=== PATIENT | female | born 2005 | race Caucasian/White ===

== ENCOUNTER 2025-10-20 01:05 | Emergency (ER) | payer OTHER, SELFPAY ==
--- OUTSIDE RECORDS SUMMARY | 2016-05-13 05:45 | XMS_ITS | Continuity of Care Document ---
Author Organization [facility] Address [address] [place] [address] Phone Care Team Providers Care Gray Mixing Operator Name Role Phone Miguel LUNAYakeline Unavailable Unavailable Medications Medication Instructions Dosage Effective Dates (start - stop) Status Comments Nix Creme Rinse 1 % Topical Liquid apply by topical route a sufficient amount of shampoo once allow to remain on hair for 10 minutes before rinsing off with water 0.00 - Active amoxicillin 400 mg/5 mL Oral Susp take 7.5 milliliter (600MG) by oral route every 12 hours 600 MG - Active Zyrtec 1 mg/mL Oral Soln 3/4 tsp po qd - Active qs 1 month Procedures Procedure Date PREV.VISIT/EST. 5-11 YRS HEP A VAC, PED/ADOL, DOSE 2 (1) 2 Dose S eries (SV) PREV.VISIT/EST. 5-11 YRS HEP A VAC, PED/ADOL, DOSE 1 (SV) (1) Oct Influenza/3YRS + (1) Immunization Admin 1st Vaccine 11 Immunization Admin Ea Addl Vaccine OFFICE VISIT/EST LEVEL III ACCUCHECK/GLUCOMETER No Show No Show PREV.VISIT/EST. 5-11 YRS URINE DIP HEARING SCREEN VISUAL ACUITY SCREEN DTAP VACCINE, < 7 YRS Dose 5 (SV) IPV Dose 4 (SV) MMR VACCINE Dose 2 (SV) VARIVAX Dose 2 (SV) CBC W/DIFF. OFFICE VISIT/EST LEVEL III OFFICE VISIT/EST LEVEL III OFFICE VISIT/EST LEVEL III OFFICE VISIT/EST LEVEL III OFFICE VISIT/EST LEVEL III OFFICE VISIT/EST LEVEL III URINE DIP URINE CULTURE ELECTROLYTES:NA,K,CL CO2 OFFICE VISIT/EST LEVEL III OFFICE VISIT/EST LEVEL III OFFICE VISIT/EST LEVEL III OFFICE VISIT/EST LEVEL III URINE DIP URINE CULTURE OFFICE VISIT/EST LEVEL III URINE CULTURE OFFICE VISIT/EST LEVEL III OFFICE VISIT/EST LEVEL III OFFICE VISIT/EST LEVEL III FLU VACCINE, 3 YRS & > (State) 08 Advance Directives Directive Yes / No Effective Date File Name No Information Encounters Encounter Description Practice Location Reason(s) For Visit Diagnoses Date Provider Providers Copied on Encounter [facility], [address], [id number], tel:[phone] [facility] No Information 6 Miguel PAC Ruth. [address] [place], [place], [id number], [place]. tel:[phone] [facility], [address], [id number], tel:[phone] [facility] No Information 9-201 3 Miguel PAC Ruth. [address] [place], [place], [id number], [place]. tel:[phone] PREV.VISIT/ES T. 5-11 YRS [facility], [address] [facility] [address], [place], [place], [id number], [place] tel:[phone] [facility] (chief complaint[facility] No Information 3 Miguel Miranda. [address] [place] [address], [id number], [place]. tel:[phone] PREV.VISIT/ES T. 5-11 YRS [facility], [address] [facility] [address], [place], [place], [id number], [place] tel:[phone] [facility] wcc (chief complaint) flu shot (chief complaint) No Information 1 José Garnett. [address] [place] [address], [id number], [place]. tel:[phone] OFFICE VISIT/EST LEVEL III [facility] [address], [id number], [place] tel:[phone] [facility] dizziness (chief complaint) behavior (chief complaint) No Information 1 No Information [facility], [address] [place] [address] 200, [place], [place], [id number], [place] tel:[phone] [facility] No Information 0 No Information [facility], [address] [place] [address], [place], [id number], [place] tel:[phone] [facility] No Information 0 No Information PREV.VISIT/ES T. 5-11 YRS [facility] [place], [address] [place] [address], [place], [id number], [place] tel:[phone] [facility] No Information Jan-3 0- 0 No Information [facility], [address] [place] [address], [place], [id number], [place] tel:[phone] [facility] No Information Mar-3 0- 0 No Information OFFICE VISIT/EST LEVEL III [facility] [address], [place], [place], [id number], [place] tel:[phone] 700 [facility] No Information 2-201 0 No Information OFFICE VISIT/EST LEVEL III [facility], [address], [place], [place], [id number], [place] tel:[phone] 700 [facility] No Information Aug-0 7-200 9 No Information OFFICE VISIT/EST LEVEL III [facility], [address], [place], [place], [id number], [place] tel:[phone] 700 [facility] No Information Jun- 4-200 9 No Information OFFICE VISIT/EST LEVEL III [facility], [address], [place], [place], [id number], [place] tel:[phone] 700 [facility] No Information May-2 0-200 9 No Information OFFICE VISIT/EST LEVEL III [facility], [address], [place], [place], [id number], [place] tel:[phone] 700 [facility] No Information May-0 9-200 9 No Information OFFICE VISIT/EST LEVEL III [facility], [address], [place], [place], [id number], [place] tel:[phone] 700 [facility] No Information March-0 8-200 9 No Information OFFICE VISIT/EST LEVEL III [facility], [address], [place], [place], [id number], [place] tel:[phone] [facility] No Information Feb-2 1-200 9 No Information OFFICE VISIT/EST LEVEL III [facility], [address], [place], [place], [id number], [place] tel:[phone] 700 [facility] No Information Jan-3 1-200 9 No Information OFFICE VISIT/EST LEVEL III [facility], [address], [place], [place], [id number], [place] tel:[phone] 700 [facility] No Information Jan-3 0-200 9 No Information OFFICE VISIT/EST LEVEL III [facility], [address], [place], [place], [id number], tel:[phone] [facility] No Information 0 2200 9 No Information OFFICE VISIT/EST LEVEL III [facility], [address] [facility] [address], [place], [place], [id number], tel:[phone] [facility] No Information 9 No Information OFFICE VISIT/EST LEVEL III [facility], [address] [facility] [address], [place], [place], [id number], tel:[phone] [facility] No Information 9 No Information OFFICE VISIT/EST LEVEL III [facility], [address] [facility] [address], [place], [place], [id number], tel:[phone] [facility] No Information 9 No Information OFFICE VISIT/EST LEVEL III [facility], [address] [facility] [address], [place], [place], [id number], tel:[phone] [facility] No Information 8 No Information Family History Family Member Type Diagnosis Age At Onset Aunt Problem (finding) migraine Mother Problem (finding) asthma Aunt Problem (finding) seizure disorder Mother Problem (finding) Allergies Maternal grandmother Problem (finding) Thyroid disease Mother Problem (finding) malignant neop lasm of cervix uteri Immunizations Vaccine Date Status Comments Hep A (ped/adol, 2 dose) administered Cherelle rce: New Immunization Record flu (split) preservative goran e, 6-35 mos administered Source: New Immuniza tion Record Hep A (ped/adol, 2 dose) administered Cherelle rce: New Immunization Record MMR administered Source: New Imm unization Record varicella administered Source: New Imm unization Record polio, inactivated (IPV) administered Cherelle rce: New Immunization Record DTaP administered Source: New Imm unization Record pneumo (under 5) (PCV7) administered Sour ce: New Immunization Record polio, inactivated (IPV) administered Cherelle rce: New Immunization Record HIB - unspecified administered Note: Set procedure code where blank for historical non-specific HIB entry. ; Source: New Immunization Record varicella administered Source: New Imm unization Record MMR administered Source: New Imm unization Record pneumo (under 5) (PCV7) administered Sour ce: New Immunization Record hep B (ped/adol, 3 dose) administered Cherelle rce: New Immunization Record HIB - unspecified administered Note: Set procedure code where blank for historical non-specific HIB entry. ; Source: New Immunization Record DTaP administered Source: New Imm unization Record pneumo (under 5) (PCV7) administered Sour ce: New Immunization Record polio, inactivated (IPV) administered Cherelle rce: New Immunization Record HIB - unspecified administered Note: Set procedure code where blank for historical non-specific HIB entry. ; Source: New Immunization Record DTaP administered Source: New Imm unization Record pneumo (under 5) (PCV7) administered Sour ce: New Immunization Record polio, inactivated (IPV) administered Cherelle rce: New Immunization Record hep B (ped/adol, 3 dose) administered Cherelle rce: New Immunization Record HIB - unspecified administered Note: Set procedure code where blank for historical non-specific HIB entry. ; Source: New Immunization Record DTaP administered Source: New Imm unization Record hep B (ped/adol, 3 dose) administered Cherelle rce: New Immunization Record DTaP administered Source: New Imm unization Record Payers Payer name Insurance type Covered constitution party ID Authoriza tion(s) No Information Social History Type Description Quantity Date Captured Comments Sex Female Smoking Status No Information Chief Complaint And Reason For Visit No Information Reason For Referral Reason For Referral No Information History Of Present Illness Encounter Date Complaint History Of Prese nt Illness No Information Functional Status Date Functional Assessmen t No Information Instructions Date Instruction Additional Infor mation form completed Related to Well child check Tommy-14-2013 form completed Related to Well child check Assessments Type Assessment Date No Information Patient Care Teams Name Effective Dates (start - stop) Status Members No Information
--- OUTSIDE RECORDS SUMMARY | 2025-09-20 10:45 | XMS_ITS | Encounter Summary ---
Author Organization [employer] ([place], [place], [place], [place], [place]) Address [address] [place] [address] Care Team Providers Care Patient Registration Supervisor Name Role Phone Amos Jarrett MD Primary Care Provider [phone] Encounter Details Date Type Department Care Team (Late st Contact Info) Description 09/20/2025 10:45 AM EST Office Visit [facility] Cardiology - [place] [address] [place] [address] Lucía Garcia PA-C [address] [address] Shortness of breath (Primary Dx); Palpitations Social History Tobacco Use Types Packs/Day Years Used Date Smoking Tobacco: Former Cigarettes Smokeless Tobacco: Never Tobacco Cessation:Counseling Given: Not Answered Alcohol Use Standard Drinks/Week Comments Never 0 (1 standard drink = 0.6 oz pur e alcohol) caffeine use Comments Unknown Sex and Gender Information Value Date Recorded Sex Assigned at Not on file Legal Sex Female 12:18 AM CDT Gender Identity Not on file Sexual Orientation Not on file documented as of this encounter Last Filed Vital Signs Vital Sign Reading Time Taken Comments Blood Pressure 106/68 09/20/2025 10:38 AM EST Pulse 74 09/20/2025 10:38 AM EST Temperature - - Respiratory Rate - - Oxygen Saturation 96% 09/20/2025 10:38 AM EST Inhaled Oxygen Concentration - - Weight 83 kg (183 lb) 09/20/2025 10:38 AM EST Height 177.8 cm (5' 10 ) 09/20/2025 10:38 AM EST Body Mass Index 26.26 09/20/2025 10:38 AM EST documented in this encounter Progress Notes * Lucía Garcia PA-C - 09/20/2025 10:45 AM EST CARDIOLOGY NEW PATIENT EVALUATION Date of Service: 09/20/2025 NAME: Tarah Knox : 2005 AGE: 20 y.o. PCP: Amos Jarrett MD Chief Complaint No chief complaint on file. History of Present Illness Pleasant 20-year-old white female who is seen in consultation from Amos Jarrett MD for evaluation of near syncope and palpitations. Patient had previously followed with Dr. Blum and diagnosed with PSVT. This was managed with beta-mary. When the patient lost her insurance she was no longer able to afford follow-up visits or medications. She is now 10 weeks . Palpitation symptoms have persisted. Today they have not escalated. She has also had episodes that her boyfriend reports ispossible seizure activity. She is scheduled to see neurology. She has had no enzo syncopal episodes. He states she blanks out and has twitching of her hands and fingers lasts for couple of minutesand resolved spontaneously. History of asthma Review of Systems ROS Current Medications Current Outpatient Medications Medication Sig Dispense Refill vitamin w/wskohjn-ewtk-glxhqn ( PLUS) 27 mg iron- 1 mg tab Take 1 tablet by mouth daily. No current facility-administered medications for this visit. Past Medical History Past Medical History: Diagnosis Date Asthma Dizziness Syncope Past Surgical History Past Surgical History: Procedure Laterality Date COLONOSCOPY ESOPHAGOGASTRODUODENOSCOPY Allergies Allergies Allergen Reactions Rocephin [Ceftriaxone] Social History Social History Socioeconomic History Marital status: Single Spouse name: Not on file Number of children: Not on file Years of education: Not on file Highest education level: Not on file Occupational History Not on file Tobacco Use Smoking status: Former Types: Cigarettes Smokeless tobacco: Never Substance and Sexual Activity Alcohol use: Never Comment: caffeine use Drug use: Never Sexual activity: Not on file Other Topics Concern Not on file Social History Narrative Not on file Social Drivers of Health Food Insecurity: Not on file Transportation: Not on file Family History Family History Problem Relation Name Age of Onset Seizures Other Cancer Other Physical Exam BP 106/68 (BP Location: Left arm, Patient Position: Sitting) Pulse 74 Ht 1.778 m (5' 10 ) Wt 83 kg (183 lb) SpO2 96% BMI 26.26 kg/m?? Physical Exam Constitutional: Appearance: Normal appearance. Patient is normal weight. HENT: Head: Normocephalic and atraumatic. Right Ear: External ear normal. Left Ear: External ear normal. Nose: Nose normal. Mouth/Throat: Pharynx: Oropharynx is clear. Eyes: Extraocular Movements: Extraocular movements intact. Conjunctiva/sclera: Conjunctivae normal. Pupils: Pupils are equal, round, and reactive to light. Cardiovascular: Rate and Rhythm: Normal rate and regular rhythm. Pulses: Normal pulses. Heart sounds: Normal heart sounds. Pulmonary: Effort: Pulmonary effort is normal. Breath sounds: Normal breath sounds. Abdominal: General: Abdomen is flat. Bowel sounds are normal. Palpations: Abdomen is soft. Musculoskeletal: General: Normal range of motion. Cervical back: Normal range of motion and neck supple. Skin: General: Skin is warm and dry. Capillary Refill: Capillary refill takes less than 2 seconds. Neurological: General: No focal deficit present. Mental Status: He is alert and oriented to person, place, and time. Mental status is at baseline. Psychiatric: Mood and Affect: Mood normal. Behavior: Behavior normal. Thought Content: Thought content normal. Judgment: Judgment normal. EKG: Normal Assessment -PSVT by history - +/- Seizure - Active Plan EKG is normal. Patient does not appear to be terribly symptomatic by palpitations currently. With hormonal changes, stress of , increased/changes in body size, the demands baby will put on mother as pregnancyu will likely cause a rise in heart rate and possibly increased palpitations. Willtry to avoid pharmacologic management during Emphasized lifestyle adjustments, decrease caffeine, daily exercise, decrease stress. Place 7-day ambulatory monitor Pursue neurology evaluation Follow-up in 3 months LITY MANAGER documented in this encounter Plan of Treatment Upcoming Encounters Date Type Department Care Team (Late st Contact Info) Description 12/22/2025 10:45 AM EST Office Visit [facility] Cardiology - [address] [address] Lucía Garcia PA-C [address] [facility] [address] documented as of this encounter Procedures Procedure Name Priority Date/Time Associated Diagnosis Comments FS_MODEL_IP_ECG 12-LEAD Routine 09/20/20 12:40 PM EST Shortness of breath documented in this encounter Results * ECG 12 lead (09/20/2025 12:40 PM EST) Lucía Garcia PA-C ECG ORDERABLES Final Result * Event monitor supply assistant and record (09/20/2025 11:23 AM EST) Anatomical Region Laterality Modality Other Narrative 10/09/2025 4:39 PM EST Holter Re: -PSVT by history - +/- Seizure - Active All sinus rhythm with sinus tachycardia No SVT No pauses No profound bradycardia No other findings PEDRO HOBSON Lucía Garcia PA-C CV CARDIAC SERVICES ORDERABLE S Final Result documented in this encounter Visit Diagnoses Diagnosis Shortness of breath- Primary Palpitations Palpitations documented in this encounter Care Teams Patient Registration Supervisor Relationship Specialty Start Date End Date Amos Jarrett MD [address] [place] [address] PCP - General Family Medicine 08/01/25 documented as of this encounter
--- OUTSIDE RECORDS SUMMARY | 2025-09-20 11:00 | XMS_ITS | Encounter Summary ---
Author Organization [employer] ([place], [place], [place], [place], [place]) Address [address] [place] [address] Care Team Providers Care Automotive Finance Manager Name Role Phone Amos Jarrett MD Primary Care Provider [phone]- [phone] Encounter Details Date Type Department Care Team (Late st Contact Info) Description 09/20/2025 11:00 AM EST Ancillary Procedure [address] [address] Lucía Garcia PA-C [address] [place] [address] Palpitations Social History Tobacco Use Types Packs/Day Years Used Date Smoking Tobacco: Former Cigarettes Smokeless Tobacco: Never Alcohol Use Standard Drinks/Week Comments Never 0 (1 standard drink = 0.6 oz pur e alcohol) caffeine use Comments Unknown Sex and Gender Information Value Date Recorded Sex Assigned at Not on file Legal Sex Female 12:18 AM CDT Gender Identity Not on file Sexual Orientation Not on file documented as of this encounter Plan of Treatment Upcoming Encounters Date Type Department Care Team (Late st Contact Info) Description 12/22/2025 10:45 AM EST Office Visit [address] [address] Lucía Garcia PA-C [address] [place] [address] documented as of this encounter Procedures Procedure Name Priority Date/Time Associated Diagnosis Comments EVENT MONITOR CRYSTAL SLICER AND RECORD Routine 09/20/2025 11:23 AM EST Palpitations documented in this encounter Results * Event monitor biomass power plant superintendent and record (09/20/2025 11:23 AM EST) Anatomical Region Laterality Modality Other Narrative 10/09/2025 4:39 PM EST Holter Re: -PSVT by history - +/- Seizure - Active All sinus rhythm with sinus tachycardia No SVT No pauses No profound bradycardia No other findings PEDRO HOBSON Lucía Garcia PA-C CV C[facility] SERVICES ORDERABLE S Final Result documented in this encounter Visit Diagnoses Diagnosis Palpitations documented in this encounter Care Teams Automotive Finance Manager Relationship Specialty Start Date End Date Amos Jarrett MD [address] [place] [address] [place] [address] PCP - General Family Medicine 08/01/25 documented as of this encounter
--- NOTE | 2025-10-20 01:07 | ECG_ITS ---
APPROVED REPORT Exam: Resting ECG HR:72 bpm ECG Measurements Heart Rate 72 AXES NJ 133 P 54 QRSd 78 QRS 42 QT 372 T 27 QTc 396 Conclusion SINUS RHYTHM NORMAL ECG Electronically signed by : HERNÁN GARCIA, 10/20/2025 06:41:06
[2025-10-20 01:09] VITALS: BP 131/73; PULSE 79; RESP 16; TEMP 36.6; O2SAT 99; BMI 27.1
[2025-10-20 01:12] VITALS: BP 123/76; PULSE 65; RESP 19; TEMP 36.5; O2SAT 99
[2025-10-20] MEDS: ASPIRIN 81MG CHEWABLE TABLET 324 MG PO (01:17)
[2025-10-20] MEDS: LACTATED RINGERS 1000ML 1,000 ML 999 ML IV (01:18)
[2025-10-20 01:25] LABS: Hematocrit 38.9 % (37.0-47.0); Hemoglobin 12.8 g/dL (12.2-16.2); Immature Granulocytes % 0.2 %; Mean Corpuscular HGB Conc 32.9 g/dL (31.8-35.4); Mean Corpuscular Hemoglobin 27.4 pg (27.0-31.2); Mean Corpuscular Volume 83.1 fl (81-99); Nucleated Red Blood Cells % 0 %; Platelet Count 308 K/mm3 (142-424); Red Blood Count 4.68 M/mm3 (4.20-5.40); Red Cell Distribution Width-SD 41.8 fL; White Blood Count 13.1 K/mm3 (4.5-13.0)
--- OUTSIDE RECORDS SUMMARY | 2025-10-20 01:30 | XMS_ITS | Referral Summary ---
Author Organization [employer] ([place], [place], [place], [place], [place]) Address [address] [place] [address] Care Team Providers Care Breaker Boss Name Role Phone Amos Jarrett MD Primary Care Provider [phone]- [phone] Encounters Date Type Department Care Team Description 09/20/2025 11:00 AM EST Ancillary Procedure [address] [address] Lucía Garcia PA-C Palpitations 09/20/2025 10:45 AM EST Office Visit [address] [address] Lucía Garcia PA-C Shortness of breath (Primary Dx); Palpitations from Last 3 Months Allergies Active Allergy Reactions Criticality Noted Date Comments Ceftriaxone 07/06/2025 Medications vitamin w/jjwtqua-rios-b olate ( PLUS) 27 mg iron- 1 mg tab Take 1 tablet by mouth daily. Active Active Problems Problem Noted Date Diagnosed Date Syncope Dizziness Asthma Social History Tobacco Use Types Packs/Day Years [...] on file Sexual Orientation Not on file Last Filed Vital Signs Vital Sign Reading Time Taken Comments Blood Pressure 106/68 09/20/2025 10:38 AM EST Pulse 74 09/20/2025 10:38 AM EST Temperature 36.4 C (97.6 F) 07/06/2025 4:12 AM EDT Respiratory Rate 17 07/06/2025 4:12 AM EDT Oxygen Saturation 96% 09/20/2025 10:38 AM EST Inhaled Oxygen Concentration - - Weight 83 kg (183 lb) 09/20/2025 10:38 AM EST Height 177.8 cm (5' 10 ) 09/20/2025 10:38 AM EST Body Mass Index 26.26 09/20/2025 10:38 AM EST Plan of Treatment Upcoming Encounters Date Type Department Care Team (Late st Contact Info) Description 12/22/2025 10:45 AM EST Office Visit [facility] Cardiology - [place] [address] [address] Lucía Garcia PA-C 227 [facility] [address] [place] [address] Procedures Procedure Name Priority Date/Time Associated Diagnosis Comments FS_MODEL_IP_ECG 12-LEAD Routine 09/20/2025 12:40 PM EST Shortness of breath EVENT MONITOR BESSEMER REGULATOR AND RECORD Routine 09/20/2025 11:23 AM EST Palpitations from Last 3 Months Results * ECG 12 lead (09/20/2025 12:40 PM EST) Lucía Garcia PA-C ECG ORDERABLES Final Result * Event monitor milling machine set up operator and record (09/20/2025 11:23 AM EST) Anatomical Region Laterality Modality Other Narrative 10/09/2025 4:39 PM EST Holter Re: -PSVT by history - +/- Seizure - Active All sinus rhythm with sinus tachycardia No SVT No pauses No profound bradycardia No other findings PEDRO HOBSON Lucía Garcia PA-C CV CARDIAC SERVICES ORDERABLE S Final Result from Last 3 Months Insurance [facility] [place] Care Teams Breaker Boss Relationship Specialty Start Date End Date Amos Jarrett MD [address] [place] [address] PCP - General Family Medicine 08/01/25
[2025-10-20 01:31] LABS: Albumin Level 4.9 g/dl (3.5-5.0); Chloride 102 mmol/L (98-107); Sodium 141 mmol/L (136-145)
--- OUTSIDE RECORDS SUMMARY | 2025-10-20 01:31 | XMS_ITS | Clinical Summary ---
Author Organization [employer] ([place], [place], [place], [place], [place]) Address [address] [place] [address] Care Team Providers Care Assistant Store Leader Name Role Phone Amos Jarrett MD Primary Care Provider [phone] Allergies Active Allergy Reactions Criticality Noted Date Comments Ceftriaxone 07/06/2025 Medications vitamin w/jwnssgi-opqt-g olate ( PLUS) 27 mg iron- 1 mg tab Take 1 tablet by mouth daily. Active Active Problems Problem Noted Date Diagnosed Date Syncope Dizziness Asthma Encounters Date Type Department Care Team Description 09/20/2025 11:00 AM EST Ancillary Procedure [address] [address] Lucía Garcia PA-C Palpitations 09/20/2025 10:45 AM EST Office Visit [address] [phone] Lucía Garcia PA-C Shortness of breath (Primary Dx); Palpitations from Last 3 Months Family History Medical History Relation Name Comments Cancer Other Seizures Other Relation Name Status Comments Other Social History Tobacco Use Types Packs/Day Years [...] Description 12/22/2025 10:45 AM EST Office Visit [facility] - [place] [address] [place] [address] Lucía Garcia PA-C [address] [employer] [facility] [address] [place] [address] Health Maintenance Due Date Last Done Comments Depression Screening (12+) 2017 HIV Screening 01/15/2020 Meningococcal B Vaccine (1 of 2 - Standard) 2021 Hepatitis C Screening 2023 Pneumococcal Vaccine: 0-49 Years (1 of 2 - PCV) 2023 COVID-19 VACCINE (1 - season) 2025 Influenza Vaccine (#1) 2025 Tobacco Cessation Counseling and Screening (12+) 09/2009/20/2025 DTAP/TDAP/TD VACCINES (2 - Td or Tdap) 11/19/2028 Procedures Procedure Name Priority Date/Time Associated Diagnosis Comments FS_MODEL_IP_ECG 12-LEAD Routine 09/20/2025 12:40 PM EST Shortness of breath EVENT MONITOR MULTIFOLD OPERATOR AND RECORD Routine 09/20/2025 11:23 AM EST Palpitations from Last 3 Months Results * ECG 12 lead (09/20/2025 12:40 PM EST) Lucía Garcia PA-C ECG ORDERABLES Final Result * Event monitor supervisor cold rolling and record (09/20/2025 11:23 AM EST) Anatomical Region Laterality Modality Other Narrative 10/09/2025 4:39 PM EST Holter Re: -PSVT by history - +/- Seizure - Active All sinus rhythm with sinus tachycardia No SVT No pauses No profound bradycardia No other findings PEDRO HOBSON Lucía Garcia PA-C [facility] ORDERABLE S Final Result from Last 3 Months Insurance [facility] Care Teams Assistant Store Leader Relationship Specialty Start Date End Date Amos Jarrett MD [address] [place] [address] [place] [id number] PCP - General Family Medicine 08/01/25
[2025-10-20 01:32] LABS: INR 0.94 (0.9-1.1); Potassium 3.6 mmoL/L (3.5-5.1); Prothrombin Time 10.5 seconds (10.1-12.5)
[2025-10-20 01:34] LABS: Alanine Aminotransferase 33 U/L (12-78); Albumin/Globulin Ratio 1.5 (1.1-1.8); Alkaline Phosphatase 65 U/L (38-126); Anion Gap 17.6 mEq/L (5-15); Aspartate Amino Transferase 25 U/L (14-36); Bilirubin,Total 0.4 mg/dl (0.2-1.3); Blood Urea Nitrogen 2 mg/dl (7-17); Carbon Dioxide 25 mmol/L (22.0-30.0); Creatinine Clearance Estimated 197 mL/min (50-200); Creatinine,Serum 0.60 mg/dl (0.52-1.04); Estimated Glomerular Filt Rate 127 ml/min (>60); GFR (African American) 154 ML/MIN (>60); Globulin 3.2 g/dL (1.3-3.2); Total Protein,Serum 8.1 g/dl (6.3-8.2)
--- NOTE | 2025-10-20 01:34 | XR_ITS ---
PROCEDURE INFORMATION: Exam: XR Chest Exam date and time: 10/20/2025 1:43 AM Age: 20 years old Clinical indication: Pain; Chest pressure; Additional info: Chest pain TECHNIQUE: Imaging protocol: Radiologic exam of the chest. Views: 1 view. COMPARISON: No relevant prior studies available. FINDINGS: Lungs: No consolidation. Pleural spaces: No significant pleural effusion. No pneumothorax. Heart/Mediastinum: No cardiomegaly. Bones/joints: No displaced fracture. Soft tissues: Unremarkable. IMPRESSION: No definite acute cardiopulmonary disease.
--- NOTE | 2025-10-20 01:34 | HMH.EDCP ---
Discharge Plan Disposition Patient Disposition: Home, Self-Care Condition: Good Prescriptions Prescriptions: No Action No Known Home Medications Referrals Follow up/Referrals: Amos Jarrett MD [Primary Care Provider, Internal Medicine] - See instructions Activity Restrictions/Add. Instructions Additional Instructions/Restrictions: You were evaluated in the ER and are believed to be appropriate for discharge at this time. Please call your primary care doctor and make an appointment for reevaluation in 1 to 2 days. Follow-up with your OB for immediate reevaluation as well. Return to the ER with any new, worsening, or otherwise concerning symptoms as discussed. Clinical Impressions Clinical Impression: Chest pain during Print Language Print Language: Greenlandic Discharge ED Provider: Wellington Restrepo General Chief Complaint: Chest Pain Stated Complaint: Chest Pain Time Seen by Provider: 10/20/25 01:09 Mode of Arrival: Ambulatory Source of Information: Patient Description of Symptoms (Recalled from ER Triage Doc. by RN): chest pain (squeezing) started around 2330; face hot, legs numb/[place], nausea, headache History of Present Illness HPI narrative: 20-year-old female presents to the ER with squeezing chest pain that started approximately 2 hours prior to arrival. Patient states she has a tingling sensation throughout her body which seems worse in her legs and face. She had initially described numbness to the nurses during triage but on further discussion it is not truly numb, she describes feeling generally under the weather and feeling tingly. She also reports headache throughout the head, no vision changes. No neck pain.. She states she has had cough for the last few days. She states she is having associated nausea but no vomiting. No diarrhea or constipation. Denies documented fever. Denies dysuria or hematuria. No known sick exposures. Patient claims she has been having random seizure-like episodes but the last time was a few weeks ago, she has outpatient follow-up established for this. The description of her seizure activity is brief episodes of staring off, occasional slight tremor in a hand. She had no seizure-like activity or any other associated symptoms tonight. Patient is G1, P0. She states she is not having any abdominal pain, cramping, vaginal bleeding or discharge. Related Data Home Medications ?Medication ?Instructions ?Recorded ?Confirmed No Known Home Medications 07/31/25 07/31/25 Allergies Allergy/AdvReac Type Severity Reaction Status Date / Time ceftriaxone (From Rocephin) Allergy Intermediate Hives Verified 07/31/25 10:00 [facility] Disclaimer: The information contained in this section may have been updated after the patient was seen, as this information can be updated by other users. Medical History (Updated 10/20/25 @ 04:16 by Wellington Restrepo MD) Asthma Ovarian cyst Bulging discs Surgical History (Updated 07/31/25 @ 10:01 by Adeline Daugherty MA) History of esophagogastroduodenoscopy (EGD) H/O colonoscopy History of facial surgery Family History (Updated 07/31/25 @ 10:02 by Adeline Daugherty MA) Other Cancer Seizures Social History (Updated 07/31/25 @ 10:02 by Adeline Daugherty MA) Smoking Status: Never smoker alcohol intake: never substance use type: denies use current occupational status: unemployed Travel in the last 8 weeks?: None ROS Obtained: Yes Systems reviewed as appropriate & no additional complaints except as documented Per HPI Physical Exam General General appearance: alert and in no apparent distress Head Head exam: atraumatic and normocephalic Eye Eye exam: Present PERRL and EOMI ENT ENT exam: Present mucous membranes moist Neck Neck exam: Present normal inspection and full ROM Chest Chest inspection: Present symmetric chest wall rise and tenderness (Mild left upper chest wall tenderness without evidence of trauma) Respiratory Respiratory exam: Present normal lung sounds bilaterally; Absent respiratory distress, wheezes or stridor Cardiovascular Cardiovascular exam: Present regular rate and normal rhythm Abdominal Exam Abdominal exam: Present soft; Absent distention or tenderness Extremities Exam Extremities exam: Present full ROM Back Exam Back exam: Absent tenderness Neurological Exam Neurological exam: Present alert, oriented X3, normal gait and other (NIH 0); Absent motor sensory deficit Psychiatric Psychiatric exam: Present normal affect and normal mood Skin Skin exam: Present warm and dry HEART Score HEART Score HEART Score assessment performed?: Yes History (anamnesis): Slightly suspicious ECG: Normal Age: <45 years Risk factors: No known risk factors Troponin: </= normal limit HEART Score: 0 Procedures Miscellaneous Procedure Procedure Performed: Limited Cardiac Ultrasound Performed by: Wellington Restrepo MD Indication: Chest pain Identified cardiac views: [-Cardiac parasternal long axis] [-Cardiac parasternal short axis] [-Cardiac apical four-chamber] [-Cardiac subxiphoid] Findings: Cardiac activity present, no gross wall motion abnormality, no pericardial effusion, no right heart strain Impression: - Cardiac activity present, no gross wall motion abnormality, no pericardial effusion, no right heart strain Images were saved to permanent archive The study was technically adequate CPT: 21739 This study was performed by ri, and I personally interpreted all images/videos. Based on my clinical judgement, these images were adequate and did not necessitate further imaging. Limited OB ultrasound Performed by Wellington Restrepo MD Indication: Known Identified structures: [-Uterus -Left adnexa -Right adnexa -Pouch of Luis Eduardo] Findings: Uterus: Definitive IUP live with good activity FHR: 141 Right adnexa: Normal Left adnexa: Normal Cul de sac: Free fluid absent Impression: -IUP: Present - heart rate: 141 -Ectopic : Absent -Free fluid: Absent Images were saved to permanent archive The study was technically adequate CPT Transabdominal: 82023-73 This study was performed by ri, and I personally interpreted all images/videos. Based on my clinical judgement, these images were adequate and did not necessitate further imaging. Critical Care Critical Care Time Critical Care Time: No Medical Decision Making Medical Records Medical records reviewed: Yes I reviewed the patient's medical records. Baron Inquiry Pt receiving controlled substance: No Vital Signs Vital Signs: 10/20/25 01:09 10/20/25 01:12 10/20/25 01:37 Temperature 97.9 F 97.7 F Temperature Source Oral Pulse Rate 65 74 Pulse Rate [Right Radial] 79 Respiratory Rate 16 19 Blood Pressure 123/76 Blood Pressure [Right Arm] 131/73 Blood Pressure Mean [Right Arm] 92 Blood Pressure Source [Right Arm] Automatic Cuff Blood Pressure Position [Right Arm] Supine 02 Sat by Pulse Oximetry 99 99 Oxygen Delivery Method Room Air Room Air Lab Data Labs: Lab Results 10/20/25 01:06: WBC 13.1 H, RBC 4.68, Hgb 12.8, Hct 38.9, MCV 83.1, MCH 27.4, MCHC 32.9, RDW 14.0, Plt Count 308, MPV 12.0 H, Neut % (Auto) 69.1, Lymph % (Auto) 21.5, [place] % (Auto) 7.5, Eos % (Auto) 1.1, Baso % (Auto) 0.6, Neut # (Auto) 9.1 H, Lymph # (Auto) 2.8, [place] # (Auto) 1.0, Eos # (Auto) 0.1, Baso # (Auto) 0.1, PT 10.5, INR 0.94, D-Dimer 0.65 H, Sodium 141, Potassium 3.6, Chloride 102, Carbon Dioxide 25, Anion Gap 17.6 H, BUN 2 L, Creatinine 0.60, Estimated Creat Clear 197, Estimated GFR 127, Est GFR ( Amer) 154, Glucose 90, Calcium 9.1, Total Bilirubin 0.4, AST 25, ALT 33, Alkaline Phosphatase 65, Troponin I < 0.01, NT-Pro-B Natriuret Pep 37.8, Total Protein 8.1, Albumin 4.9, Globulin 3.2, Albumin/Globulin Ratio 1.5 10/20/25 01:39: SARS-CoV-2 (PCR) Not detected, Influenza Type A (PCR) Not detected, Influenza Type B (PCR) Not detected, RSV (PCR) Not detected, Rhinovirus (PCR) Not detected 10/20/25 04:01: Troponin I < 0.01 10/20/25 01:06 10/20/25 01:06 Response Orders (Tests/Meds): ED MEDICATIONS Discontinued Medications Generic Name Dose Route Start Last Admin Trade Name Freq PRN Reason Stop Dose Admin Acetaminophen 500 mg 10/20/25 01:49 10/20/25 02:08 Acetaminophen 500mg Tab PO 10/20/25 01:50 500 mg ONCE ONE Administration Aspirin 324 mg 10/20/25 01:10 10/20/25 01:17 Aspirin 81mg Chewable Tablet PO 10/20/25 01:11 324 mg ONCE ONE Administration Lactated Ringer's 1,000 mls @ 999 mls/hr 10/20/25 01:10 10/20/25 04:06 Lactated Ringer's 1000 Ml Bag IV 10/20/25 02:10 Infused .Q1H1M ONE Infusion ORDERS Category Date Time Status CXR --portable [XR chest portable] Stat Exams 10/20/25 01:34 Completed POCUS Point of Care (ER Only) Stat Exams 10/20/25 01:14 Completed Complete Blood Count Auto Diff Stat Lab 10/20/25 01:06 Completed Comprehensive Metabolic Panel Stat Lab 10/20/25 01:06 Completed D-Dimer Stat Lab 10/20/25 01:06 Completed Mini Respiratory Panel Routine Lab 10/20/25 01:39 Completed NT Pro Brain Natriuretic Pep. Stat Lab 10/20/25 01:06 Completed Prothrombin Time INR Stat Lab 10/20/25 01:06 Completed Troponin I Q3H Lab 10/20/25 04:01 Completed Troponin I Q3H Lab 10/20/25 07:15 Ordered Troponin I Stat Lab 10/20/25 01:06 Completed MDM Narrative Medical Decision Narrative: In summary, this 20-year-old female G1, P0 presents to the emergency department today with multiple complaints including chest pain, generalized weakness, tingling sensation in the face and legs, headache, cough. On initial evaluation patient is hemodynamically stable, afebrile, GCS 15, NIH 0, no neurologic deficits, overall well-appearing, patient does have mild left upper chest wall tenderness with no evidence of trauma, cardiopulmonary exam benign, no peripheral edema, benign abdominal exam, [id number] ultrasound personally performed and interpreted demonstrates no acute abnormality on cardiac ultrasound, live intrauterine on OB ultrasound.. Differential diagnosis includes but is not limited to ACS, PE, electrolyte abnormality, viral syndrome, pneumonia, pneumothorax, among others. Based on these concerns, I ordered hematologic and serum labs, after discussing risks of radiation versus benefits of chest x-ray with the patient, she consented to a 1 view chest x-ray, I ordered cardiac workup, D-dimer. ECG personally interpreted demonstrates sinus rhythm, rate 72, normal axis, normal [place] and QTc, no STEMI. Patient received Tylenol for headache at her request, IV fluids, aspirin Labs personally reviewed demonstrate slight leukocytosis nonspecific and nonactionable, no anemia, normal platelets, PT/INR normal, D-dimer 0.65 by years criteria PE excluded, CMP without evidence of kidney or liver dysfunction, undetectable initial troponin at less than 0.01. Viral swab negative for all analytes. XR personally interpreted demonstrates no acute intrathoracic abnormality, see radiology read for final interpretation. On reassessment patient states her face still feels hot but she has no numbness, tingling, or weakness. No chest pain, she is asymptomatic from the symptoms that initially brought her to the ER. She feels well overall. I believe she is appropriate for discharge. She is comfortable with this plan. She has follow-up scheduled today with OB. I gave her instructions to follow-up with OB and to have follow-up with her PCP as well. I recommended she keep her upcoming appointment with neurology for follow-up of reported seizure-like activity. Patient was given instructions on symptomatic management, follow up instructions, and return precautions for the emergency department including but not limited to returning to the ER if she has seizure or seizure-like activity though at this time I believe outpatient follow-up is appropriate. Patient indicated understanding and was discharged in stable condition.
[2025-10-20 01:35] LABS: Calcium 9.1 mg/dl (8.4-10.2); Glucose 90 mg/dl (74-100)
[2025-10-20 01:37] VITALS: PULSE 74
[2025-10-20 01:44] LABS: Coronavirus 19, PCR Not Detected (NotDetected); Influenza A, PCR Not Detected (NotDetected); Influenza B, PCR Not Detected (NotDetected)
[2025-10-20 01:44] LABS: NT Pro Brain Natriuretic Pep. 37.8 pg/mL (0-125)
[2025-10-20 01:49] LABS: Troponin I < 0.01 ng/ml (0.00-0.034)
[2025-10-20 01:50] LABS: D-Dimer 0.65 ug/mL (0.0-0.5)
[2025-10-20] MEDS: ACETAMINOPHEN 500MG TAB 500 MG PO (02:08)
[2025-10-20 04:31] LABS: Troponin I < 0.01 ng/ml (0.00-0.034)
[2025-10-20 04:36] VITALS: BP 119/68; PULSE 67; RESP 18; TEMP 36.6; O2SAT 98
== END 2025-10-20 04:43 | disposition home or self-care (01) ==
PROVIDERS: Emergency Provider Emergency Medicine; PCP Family Medicine
DX: O26.899 Other specified pregnancy related conditions, unspecified trimester (principal); R07.89 Other chest pain; Z3A.00 Weeks of gestation of pregnancy not specified
CPT/HCPCS: 71045; 80053; 83880; 84484; 85025; 85378; 85610; 87631; 93005; 96360; 99285; J7120